=== PATIENT | female | born 1980 | race Caucasian/White ===

== ENCOUNTER 2017-04-19 03:52 | Emergency (ER) | payer MEDICAID ==
[2017-04-19 04:00] VITALS: BP 121/89
[2017-04-19 04:21] LABS: BASOPHIL % 1.7 % (0-2); PLATELET COUNT 314 x10^3mcL (130-400); RED CELL DISTRIBUTION WIDTH 15.2 % (11.5-14.5)
[2017-04-19 04:30] LABS: CALCIUM 8.3 mg/dL (8.5-10.1); CARBON DIOXIDE 25.8 mmol/L (21-32); CHLORIDE SERUM 104 mmol/L (98-107); CREATININE SERUM 0.6 mg/dL (0.6-1.0); GFR1 > 60 mL/min; GLUCOSE SERUM 102 mg/dL (74-106); POTASSIUM SERUM 3.5 mmol/L (3.5-5.1); SODIUM SERUM 138 mmol/L (136-145)
[2017-04-19 04:34] LABS: ALBUMIN 3.4 g/dL (3.4-5.0); ALKALINE PHOSPHATASE 91 U/L (46-116); ALT/SGPT 24 U/L (14-59); AST/SGOT 19 U/L (15-37); TOTAL PROTEIN, SERUM 7.3 g/dL (6.4-8.2)
== END 2017-04-19 06:04 | disposition home or self-care (01) ==
LOC: ED 03:52
PROVIDERS: Emergency Medicine
DX: M79.605 Pain in left leg (principal); M79.1 Myalgia; Z86.718 Personal history of other venous thrombosis and embolism
CPT/HCPCS: 36415; Q0092